=== PATIENT | female | born 1985 | race American Indian/Alaskan Native ===

== ENCOUNTER 2017-09-27 23:57 | Emergency (ER) | payer SELFPAY ==
[2017-09-28 00:57] VITALS: BP 128/84
== END 2017-09-28 01:00 | disposition left against medical advice (07) ==
LOC: ED 23:57
DX: R10.9 Unspecified abdominal pain (principal); Z53.21 Procedure and treatment not carried out due to patient leaving prior to being seen by health care provider

== ENCOUNTER 2017-11-18 15:49 | Emergency (ER) | payer OTHER ==
[2017-11-18] MEDS ORDERED: TORADOL IV ONE (16:47)
[2017-11-18] MEDS ORDERED: NACL 0.9% 1000 ML 1,000 ML IV ONE (16:47)
[2017-11-18] MEDS ORDERED: PEPCID IV ONE (16:47)
[2017-11-18] MEDS ORDERED: BENTYL IM ONE (16:47)
[2017-11-18] MEDS ORDERED: ZOFRAN IV ONE (16:47)
--- NOTE | 2017-11-18 16:47 | Emergency Department Report ---
Blank Doc - Documentation Documentation: Patient is a 32-year-old female who is presenting with abdominal pain is diffuse. Patient is a crampy pain is 8 out of 10 in severity. Patient said several days of nausea vomiting diarrhea as well. Patient states this only a small amount of yellowish stool she also is unable to keep anything down. Patient denies any fever. Patient states his pain is been present for approximately one day. Patient be moved 4 to a treatment ro to receive IV fluids Lasix and then ordered the patient will be reassessed. Om
[2017-11-18 17:24] LABS: Hematocrit 38.7 % (30.3-42.9); Hemoglobin 12.7 gm/dl (10.1-14.3); Mean Corpuscular HGB Conc 33 % (30-34); Mean Corpuscular Hemoglobin 31 pg (28-32); Mean Corpuscular Volume 95 fl (79-97); Platelet Count 261 K/mm3 (140-440); Red Blood Count 4.07 M/mm3 (3.65-5.03); Red Cell Distribution Width 13.7 % (13.2-15.2)
[2017-11-18 17:48] LABS: Alanine Aminotransferase 9 units/L (7-56); Albumin 4.4 g/dL (3.9-5); BUN/Creatinine Ratio 15; Blood Urea Nitrogen 9 mg/dL (7-17); Calcium 9.4 mg/dL (8.4-10.2); Hemolysis Index 4
[2017-11-18 18:22] LABS: Basophils % (Manual) 0 % (0.0-1.8); Eosinophils % (Manual) 0 % (0.0-4.3); Total Cells Counted 100
[2017-11-18 18:23] LABS: Anisocytosis 1+; Platelet Estimate Consistent w Auto; Poikilocytosis 1+
[2017-11-18] MEDS ORDERED: MORPHINE IV ONE (20:08)
--- NOTE | 2017-11-18 20:18 | Emergency Department Report ---
ED Abdominal Pain HPI - General Chief Complaint: Abdominal Pain Stated Complaint: ABDOMINAL PAIN Time Seen by Provider: 11/18/17 16:42 Source: patient Mode of arrival: Wheelchair Limitations: No Limitations - History of Present Illness Initial Comments: 32-year-old [place] female comes in complaining of abdominal pain across the abdomen with nausea and vomiting. Patient reports that she has complained of severe constipation. She reports that her stools have been yellow and orange. She did report that she took a laxative [id number]. She does report that she is having loose stool around but feels like there is pressure in her rectum area. Patient with a past medical history ovarian cysts. MD Complaint: abdominal pain Location: suprapubic Radiation: none Migration to: no migration Severity scale (0 -10): 10 Quality: cramping, aching Consistency: constant Improves With: nothing Worsens With: nothing Associated Symptoms: nausea, vomiting, diarrhea, constipation. denies: fever - Related Data LMP Date: 11/11/17 Previous Rx's Medication Instructions Recorded Last Taken Type Polyethylene Glycol 3350 [Miralax 17 gm PO QDAY #12 packet 11/18/17 Unknown Rx 3350] traMADol [Ultram 50 MG tab] 50 mg PO Q6HR PRN #20 tablet 11/18/17 Unknown Rx Allergies Allergy/AdvReac Type Severity Reaction Status Date / Time No Known Allergies Allergy Unverified 09/28/17 01:25 ED Review of Systems ROS: Stated complaint: ABDOMINAL PAIN Other details as noted in HPI Constitutional: denies: chills, fever Respiratory: denies: cough, shortness of breath, wheezing Cardiovascular: denies: chest pain, palpitations Gastrointestinal: abdominal pain, nausea, vomiting, diarrhea, constipation Genitourinary: denies: urgency, dysuria, discharge ED Past Medical Hx - Past Medical History Previous Medical History?: No - Surgical History Past Surgical History?: No - Social History Smoking Status: Never Smoker Substance Use Type: None - Medications Home Medications: Home Medications Medication Instructions Recorded Confirmed Last Taken Type Polyethylene Glycol 3350 [Miralax 17 gm PO QDAY #12 packet 11/18/17 Unknown Rx 3350] traMADol [Ultram 50 MG tab] 50 mg PO Q6HR PRN #20 tablet 11/18/17 Unknown Rx ED Physical Exam - General Limitations: No Limitations General appearance: alert, in no apparent distress - Head Head exam: Present: atraumatic, normocephalic - Eye Eye exam: Present: normal appearance - ENT ENT exam: Present: mucous membranes moist - Neck Neck exam: Present: normal inspection - Respiratory Respiratory exam: Present: normal lung sounds bilaterally. Absent: respiratory distress - Cardiovascular Cardiovascular Exam: Present: regular rate, normal rhythm. Absent: systolic murmur, diastolic murmur, rubs, gallop - GI/Abdominal GI/Abdominal exam: Present: soft, tenderness (left lower quadrant). Absent: distended, guarding - Extremities Exam Extremities exam: Present: normal inspection - Neurological Exam Neurological exam: Present: alert, oriented X3 - Psychiatric Psychiatric exam: Present: normal affect, normal mood - Skin Skin exam: Present: warm, dry, intact, normal color. Absent: rash ED Course Vital Signs 11/18/17 11/18/17 16:11 17:05 Temperature 98.5 F Pulse Rate 72 Respiratory 18 22 Rate Blood Pressure 116/67 O2 Sat by Pulse 100 Oximetry ED Medical Decision Making - Lab Data Result diagrams: 11/18/17 17:02 11/18/17 17:02 - Radiology Data Radiology results: report reviewed, image reviewed FINAL REPORT PROCEDURE: CT ABDOMEN PELVIS W CON TECHNIQUE: Computerized axial tomography of the abdomen and pelvis was performed after the IV injection of iodinated nonionic contrast. HISTORY: abdominal pain with history of ovarian cysts COMPARISON: No prior studies are available for comparison. FINDINGS: Lower Lung woodruff: No focal abnormality seen. Upper Abdomen: There is a intermediate to low-density nodule in the right lobe of the liver superior laterally measuring 8.2 millimeter image 27 series 2. A delayed image shows the nodule enhances diffusely and becomes isointense. The liver is otherwise unremarkable. The gallbladder showed no abnormality. Intrahepatic ducts are not distended. The adrenal glands, the pancreas and the spleen are unremarkable. Kidneys, Ureters and Urinary bladder: No abnormalities are seen. Retroperitoneum: Abdominal aorta appears normal. Nonspecific subcentimeter lymph nodes are seen in the retroperitoneum. No pathologically enlarged lymph nodes are identified. Bowel: No focal bowel loop abnormalities are seen. No evidence of bowel obstruction or ascites. There is no free intraperitoneal gas. Reproductive organs: There is a low-density nodule in the uterine myometrium anteriorly suggesting a uterine fibroid. No abnormal adnexal masses are identified. Other: No acute bone abnormalities are visualized. IMPRESSION: There is a vascular lesion in the right lobe of the liver. This enhances with contrast as described. Etiology is uncertain. A hepatic hemangioma could present this manner however other vascular lesions including malignancy can present this type of enhancement pattern as well. Consider follow-up dedicated dynamic contrast-enhanced CT scan of the liver or dynamic contrast-enhanced MRI of the liver for further characterization. Uterine fibroids suspected. No abnormal adnexal masses are seen. If further evaluation of the pelvis as clinically indicated pelvic ultrasound could be performed. No other abnormalities are seen. Transcribed By: DEVON Dictated By: TOMMY ZAPATA MD Electronically Authenticated By: TOMMY ZAPATA MD Signed Date/Time: 11/18/172127 DD/ 27 TD/TT: 11/18/172127 - Medical Decision Making Patient is been evaluated by this provider in fast track as well as Dr. Parra. CBC CMP ordered which are within normal limits. IV fluids ordered Bentyl ordered Toradol ordered Morphine ordered CT with contrast of the abdomen and pelvic Discussed patient that it is imperative that she follows up with a distinctive CT or possible MRI for evaluation of her abnormal liver concern for hemangioma versus malignancy. Also concerns for possible uterine fibroid. As well as constipation. Will discharge patient on Toradol and MiraLAX/GoLYTELY. We'll place referral for buggy ladle tender as well as a primary care. Critical care attestation.: If time is entered above; I have spent that time in minutes in the direct care of this critically ill patient, excluding procedure time. ED Disposition Clinical Impression: Abdominal pain Qualifiers: Abdominal location: left lower quadrant Qualified Code(s): R10.32 - Left lower quadrant pain Uterine fibroid Qualifiers: Uterine leiomyoma location: unspecified location Qualified Code(s): D25.9 - Leiomyoma of uterus, unspecified Constipation Qualifiers: Constipation type: unspecified constipation type Qualified Code(s): K59.00 - Constipation, unspecified Disposition: - TO HOME OR SELFCARE Is pt being admited?: No Does the pt Need Aspirin: No Condition: Stable Instructions: Abdominal Pain (ED) Additional Instructions: Please take medications as prescribed. It is imperative that she follow-up with the buggy ladle tender/gastrologist for a CT or MRI of the liver. Her CT scan came back abnormal for liver possible hemangioma versus malignancy. As well as she should follow-up with her [employer] provider as well as his a possible uterine fibroid that they noticed significant uterus. I will refer you to his primary care provider. Prescriptions: Polyethylene Glycol 3350 [Miralax 3350] 17 gm PO QDAY #12 packet traMADol [Ultram 50 MG tab] 50 mg PO Q6HR PRN #20 tablet PRN Reason: Pain Referrals: PRIMARY CARE, [Primary Care Provider] - 3-5 Days AIMEE CARMONA MD [Referring] - 3-5 Days FARZAD OLIVA MD [Referring] - 3-5 Days SHAREE MUÑIZ MD [Referring] - 3-5 Days LOULOU FONTANEZ MD [Referring] - 3-5 Days FELIPE LEE MD [Staff Physician] - 3-5 Days STEPHANIE CLINE MD [Staff Physician] - 3-5 Days MAURIZIO RAPP MD [Staff Physician] - 3-5 Days [facility] [Provider Group] - 3-5 Days Forms: Work/School Release Form(ED), Accompanied Note
[2017-11-18 20:33] LABS: HCG Qualitative,Urine Negative (Negative)
[2017-11-18 20:34] LABS: Bilirubin,Urine NEG (Negative); Blood,Urine NEG (Negative); Color,Urine Yellow (Yellow); Mucus,Urine 3+ /HPF; Urobilinogen,Urine < 2.0 mg/dL (<2.0)
--- NOTE | 2017-11-18 21:31 | Cat Scan Report ---
FINAL REPORT PROCEDURE: CT ABDOMEN PELVIS W CON TECHNIQUE: Computerized axial tomography of the abdomen and pelvis was performed after the IV injection of iodinated nonionic contrast. HISTORY: abdominal pain with history of ovarian cysts COMPARISON: No prior studies are available for comparison. FINDINGS: Lower Lung woodruff: No focal abnormality seen. Upper Abdomen: There is a intermediate to low-density nodule in the right lobe of the liver superior laterally measuring 8.2 millimeter image 27 series 2. A delayed image shows the nodule enhances diffusely and becomes isointense. The liver is otherwise unremarkable. The gallbladder showed no abnormality. Intrahepatic ducts are not distended. The adrenal glands, the pancreas and the spleen are unremarkable. Kidneys, Ureters and Urinary bladder: No abnormalities are seen. Retroperitoneum: Abdominal aorta appears normal. Nonspecific subcentimeter lymph nodes are seen in the retroperitoneum. No pathologically enlarged lymph nodes are identified. Bowel: No focal bowel loop abnormalities are seen. No evidence of bowel obstruction or ascites. There is no free intraperitoneal gas. Reproductive organs: There is a low-density nodule in the uterine myometrium anteriorly suggesting a uterine fibroid. No abnormal adnexal masses are identified. Other: No acute bone abnormalities are visualized. IMPRESSION: There is a vascular lesion in the right lobe of the liver. This enhances with contrast as described. Etiology is uncertain. A hepatic hemangioma could present this manner however other vascular lesions including malignancy can present this type of enhancement pattern as well. Consider follow-up dedicated dynamic contrast-enhanced CT scan of the liver or dynamic contrast-enhanced MRI of the liver for further characterization. Uterine fibroids suspected. No abnormal adnexal masses are seen. If further evaluation of the pelvis as clinically indicated pelvic ultrasound could be performed. No other abnormalities are seen.
[2017-11-18 23:01] VITALS: BP 94/68
== END 2017-11-19 | disposition home or self-care (01) ==
LOC: ED 15:49
DX: K59.00 Constipation, unspecified (principal); D25.9 Leiomyoma of uterus, unspecified
CPT/HCPCS: 36415; 74177; 80053; 81001; 81025; 82271; 85007; 85025; 96361; 96374; 96375; 99284; J1885; J2270; J2405; J7030; Q9967

== ENCOUNTER 2019-01-23 21:47 | Emergency (ER) | payer SELFPAY ==
--- NOTE | 2019-01-23 21:59 | Event Note ---
ED Screening Note Date of service: 01/23/19 Time: 21:54 ED Screening Note: 33 y/o female comes in for 3 months of intermittent body tingling and sharp pain in her legs and head. LMP 01/07/19 . Pain 01/16. Smoke weed. This initial assessment/diagnostic orders/clinical plan/treatment(s) is/are subject to change based on patients health status, clinical progression and re- assessment by fellow clinical providers in the ED. Further treatment and workup at subsequent clinical providers discretion. Patient/guardian urged not to elope from the ED as their condition may be serious if not clinically assessed and managed. Initial orders include:
[2019-01-23 22:10] VITALS: BP 110/72
[2019-01-23 22:45] LABS: Basophils % (Auto) 0.7 % (0.0-1.8); Eosinophils # (Auto) 0.1 K/mm3 (0.0-0.4); Eosinophils % (Auto) 1.3 % (0.0-4.3); Hematocrit 35.3 % (30.3-42.9); Hemoglobin 11.9 gm/dl (10.1-14.3); Lymphocytes # (Auto) 2.6 K/mm3 (1.2-5.4); Lymphocytes % (Auto) 42.1 % (13.4-35.0); Mean Corpuscular HGB Conc 34 % (30-34); Mean Corpuscular Volume 94 fl (79-97); Monocytes # (Auto) 0.4 K/mm3 (0.0-0.8); Monocytes % (Auto) 6.2 % (0.0-7.3); Platelet Count 240 K/mm3 (140-440); Red Blood Count 3.78 M/mm3 (3.65-5.03)
[2019-01-23 22:48] LABS: Bilirubin,Urine NEG (Negative); Blood,Urine NEG (Negative); Color,Urine Yellow (Yellow); Mucus,Urine 3+ /HPF; Protein,Urine <15 mg/dL mg/dL (Negative); Urobilinogen,Urine < 2.0 mg/dL (<2.0)
[2019-01-23 23:01] LABS: Albumin 4.4 g/dL (3.9-5); BUN/Creatinine Ratio 18; Blood Urea Nitrogen 11 mg/dL (7-17); Calcium 8.7 mg/dL (8.4-10.2); Hemolysis Index 4
[2019-01-23 23:05] LABS: Alanine Aminotransferase < 5 units/L (7-56)
[2019-01-24] MEDS ORDERED: TYLENOL PO ONE (00:26)
[2019-01-24] MEDS ORDERED: REGLAN PO ONE (00:26)
[2019-01-24] MEDS ORDERED: BENADRYL PO ONE (00:26)
[2019-01-24] MEDS ORDERED: DELTASONE PO ONE (00:26)
--- NOTE | 2019-01-24 00:42 | Emergency Department Report ---
ED General Adult HPI - General Chief complaint: Dizziness Stated complaint: BODY TINGLES, LIGHT HEADED Time Seen by Provider: 01/23/19 21:53 Source: patient Mode of arrival: Ambulatory Limitations: No Limitations - History of Present Illness Initial comments: 33 y/o female comes in frontal headache and sinus pressure for past 6 month , recurring for past 3 yrs pt states intermittent fever sinus pressure with rhonorrhea clear yellow , there is no numbness no swelling no n/v. pt endorses intermittent dizziness exacerbated by movement and position. pt has not taken OTC NSAIDs for pain Onset/Timin -: month(s) Location: head, face Radiation: non-radiation Severity scale (0 -10): 5 Quality: aching, sharp Consistency: constant Improves with: rest Worsens with: movement Associated Symptoms: cough, headaches Treatments Prior to Arrival: none - Related Data Previous Rx's Medication Instructions Recorded Last Taken Type Polyethylene Glycol 3350 [Miralax 17 gm PO QDAY #12 packet 11/18/17 Unknown Rx 3350] traMADol [Ultram 50 MG tab] 50 mg PO Q6HR PRN #20 tablet 11/18/17 Unknown Rx Amoxicillin/Potassium Clav 1 each PO BID 10 Days #20 tablet 01/24/19 Unknown Rx [Augmentin 875-125 Tablet] Ibuprofen [Motrin 800 MG tab] 800 mg PO Q8HR PRN #30 tablet 01/24/19 Unknown Rx Metoclopramide [Reglan] 10 mg PO Q6H PRN #30 tablet 01/24/19 Unknown Rx diphenhydrAMINE [Benadryl CAP] 25 mg PO Q6HR PRN #30 capsule 01/24/19 Unknown Rx predniSONE [Deltasone] 40 mg PO QDAY 5 Days #10 tab 01/24/19 Unknown Rx Allergies Allergy/AdvReac Type Severity Reaction Status Date / Time No Known Allergies Allergy Unverified 09/28/17 01:25 ED Review of Systems ROS: Stated complaint: BODY TINGLES, LIGHT HEADED Other details as noted in HPI Constitutional: denies: chills, fever Eyes: denies: eye pain, eye discharge, vision change ENT: congestion Respiratory: cough Cardiovascular: denies: chest pain, palpitations Endocrine: no symptoms reported Gastrointestinal: denies: abdominal pain, nausea, vomiting, diarrhea Genitourinary: denies: urgency, dysuria, discharge Musculoskeletal: denies: back pain, joint swelling, arthralgia Skin: denies: rash, lesions Neurological: denies: headache, weakness, numbness, paresthesias, confusion, abnormal gait, vertigo Psychiatric: denies: anxiety, depression Hematological/Lymphatic: denies: easy bleeding, easy bruising ED Past Medical Hx - Past Medical History Previous Medical History?: No - Surgical History Past Surgical History?: Yes Additional Surgical History: LEFT EYE - Social History Smoking Status: Current Every Day Smoker Substance Use Type: Marijuana - Medications Home Medications: Home Medications Medication Instructions Recorded Confirmed Last Taken Type Polyethylene Glycol 3350 [Miralax 17 gm PO QDAY #12 packet 11/18/17 Unknown Rx 3350] traMADol [Ultram 50 MG tab] 50 mg PO Q6HR PRN #20 tablet 11/18/17 Unknown Rx Amoxicillin/Potassium Clav 1 each PO BID 10 Days #20 tablet 01/24/19 Unknown Rx [Augmentin 875-125 Tablet] Ibuprofen [Motrin 800 MG tab] 800 mg PO Q8HR PRN #30 tablet 01/24/19 Unknown Rx Metoclopramide [Reglan] 10 mg PO Q6H PRN #30 tablet 01/24/19 Unknown Rx diphenhydrAMINE [Benadryl CAP] 25 mg PO Q6HR PRN #30 capsule 01/24/19 Unknown Rx predniSONE [Deltasone] 40 mg PO QDAY 5 Days #10 tab 01/24/19 Unknown Rx ED Physical Exam - General Limitations: No Limitations General appearance: alert, in no apparent distress - Head Head exam: Present: atraumatic, normocephalic - Eye Eye exam: Present: normal appearance, PERRL, EOMI Pupils: Present: normal accommodation - ENT ENT exam: Present: normal orophraynx, mucous membranes moist, TM's normal bilaterally, normal external ear exam, other (bilat maxillary and frontal sinus pain to palpation mild turbinate erythem clear post nasal drip, boggy erythema ) - Expanded ENT Exam Expanded Ear exam: Present: normal external inspection Mouth exam: Present: normal external inspection Teeth exam: Present: normal inspection Throat exam: Positive: tonsillar erythema, tonsillomegaly, other (uvula midline no stridor no swelling ). Negative: tonsillar exudate, R peritonsillar mass, L peritonsillar mass - Neck Neck exam: Present: normal inspection, full ROM. Absent: tenderness, meningismus, lymphadenopathy, thyromegaly - Respiratory Respiratory exam: Present: normal lung sounds bilaterally. Absent: respiratory distress, wheezes, stridor, chest wall tenderness - Cardiovascular Cardiovascular Exam: Present: regular rate, normal rhythm, normal heart sounds. Absent: systolic murmur, diastolic murmur, rubs, gallop - GI/Abdominal GI/Abdominal exam: Present: soft, normal bowel sounds. Absent: distended, tenderness, bruit, hernia - Rectal Rectal exam: Present: deferred - Extremities Exam Extremities exam: Present: normal inspection, full ROM, normal capillary refill. Absent: tenderness, pedal edema, joint swelling, calf tenderness - Back Exam Back exam: Present: normal inspection, full ROM. Absent: tenderness, CVA tenderness (R), CVA tenderness (L), muscle spasm, paraspinal tenderness, rash noted - Neurological Exam Neurological exam: Present: alert, oriented X3, CN II-XII intact, normal gait, reflexes normal. Absent: motor sensory deficit - Expanded Neurological Exam Expanded Neurological exam: Absent: ataxia Patient oriented to: Present: person, place, time Speech: Present: fluid speech Cranial nerves: EOM's Intact: Normal, Gag Reflex: Normal, Tongue Deviation: Normal, Nystagmus: Normal, Facial Sensation: Normal Cerebellar function: Finger to Nose: Normal, Heel to Sol: Normal, Romberg: Normal Upper motor neuron: Tonny Neglect: Normal, Pronator Drift: Normal, Babinski Sign: Normal, Sensory Extinction: Normal Sensory exam: Upper Extremity Light Touch: Normal, Upper Extremity Pin Prick: Normal, Upper Extremity Temperature: Normal, UE 2 Point Discrimination: Normal, Lower Extremity Light Touch: Normal, Lower Extremity Pin Prick: Normal, Lower Extremity Temperature: Normal, LE 2 Point Discrimination: Normal Motor strength exam: RUE: 5, LUE: 5, RLE: 5, LLE: 5 Best Eye Response ([place]): (4) open spontaneously Best Motor Response ([place]): (6) obeys commands Best Verbal Response ([place]): (5) oriented Roger Total: 15 - Psychiatric Psychiatric exam: Present: normal affect, normal mood - Skin Skin exam: Present: warm, dry, intact, normal color. Absent: rash ED Course Vital Signs 01/23/19 21:52 Temperature 98.8 F Pulse Rate 69 Respiratory 16 Rate Blood Pressure 110/72 O2 Sat by Pulse 100 Oximetry ED Medical Decision Making - Lab Data Result diagrams: 01/23/19 22:28 01/23/19 22:28 Lab Results 01/23/19 01/23/19 01/23/19 Range/Units 22:10 22:28 22:28 WBC 6.3 (4.5-11.0) K/mm3 RBC 3.78 (3.65-5.03) M/mm3 Hgb 11.9 (10.1-14.3) gm/dl Hct 35.3 (30.3-42.9) % MCV 94 (79-97) fl MCH 31 (28-32) pg MCHC 34 (30-34) % RDW 14.0 (13.2-15.2) % Plt Count 240 (140-440) K/mm3 Lymph % (Auto) 42.1 H (13.4-35.0) % [place] % (Auto) 6.2 (0.0-7.3) % Eos % (Auto) 1.3 (0.0-4.3) % Baso % (Auto) 0.7 (0.0-1.8) % Lymph # 2.6 (1.2-5.4) K/mm3 [place] # 0.4 (0.0-0.8) K/mm3 Eos # 0.1 (0.0-0.4) K/mm3 Baso # 0.0 (0.0-0.1) K/mm3 Seg Neutrophils % 49.7 (40.0-70.0) % Seg Neutrophils # 3.1 (1.8-7.7) K/mm3 Sodium 141 (137-145) mmol/L Potassium 3.8 (3.6-5.0) mmol/L Chloride 105.2 (98-107) mmol/L Carbon Dioxide 26 (22-30) mmol/L Anion Gap 14 mmol/L BUN 11 (7-17) mg/dL Creatinine 0.6 L (0.7-1.2) mg/dL Estimated GFR > 60 ml/min BUN/Creatinine Ratio 18 % Glucose 94 (65-100) mg/dL Calcium 8.7 (8.4-10.2) mg/dL Total Bilirubin 0.20 (0.1-1.2) mg/dL AST 13 (5-40) units/L ALT < 5 L (7-56) units/L Alkaline Phosphatase 46 (35-129) units/L Total Protein 7.1 (6.3-8.2) g/dL Albumin 4.4 (3.9-5) g/dL Albumin/Globulin Ratio 1.6 % HCG, Qual (Negative) Urine Color Yellow (Yellow) Urine Turbidity Clear (Clear) Urine pH 7.0 (5.0-7.0) Ur Specific [place] 1.025 (1.003-1.030) Urine Protein <15 mg/dl (Negative) mg/dL Urine Glucose (UA) Neg (Negative) mg/dL Urine Ketones Neg (Negative) mg/dL Urine Blood Neg (Negative) Urine Nitrite Neg (Negative) Urine Bilirubin Neg (Negative) Urine Urobilinogen < 2.0 (<2.0) mg/dL Ur Leukocyte Esterase Neg (Negative) Urine WBC (Auto) 1.0 (0.0-6.0) /HPF Urine RBC (Auto) 4.0 (0.0-6.0) /HPF U Epithel Cells (Auto) 5.0 (0-13.0) /HPF Urine Mucus 3+ /HPF / Range/Units 22:28 WBC (4.5-11.0) K/mm3 RBC (3.65-5.03) M/mm3 Hgb (10.1-14.3) gm/dl Hct (30.3-42.9) % MCV (79-97) fl MCH (28-32) pg MCHC (30-34) % RDW (13.2-15.2) % Plt Count (140-440) K/mm3 Lymph % (Auto) (13.4-35.0) % [place] % (Auto) (0.0-7.3) % Eos % (Auto) (0.0-4.3) % Baso % (Auto) (0.0-1.8) % Lymph # (1.2-5.4) K/mm3 [place] # (0.0-0.8) K/mm3 Eos # (0.0-0.4) K/mm3 Baso # (0.0-0.1) K/mm3 Seg Neutrophils % (40.0-70.0) % Seg Neutrophils # (1.8-7.7) K/mm3 Sodium (137-145) mmol/L Potassium (3.6-5.0) mmol/L Chloride (98-107) mmol/L Carbon Dioxide (22-30) mmol/L Anion Gap mmol/L BUN (7-17) mg/dL Creatinine (0.7-1.2) mg/dL Estimated GFR ml/min BUN/Creatinine Ratio % Glucose (65-100) mg/dL Calcium (8.4-10.2) mg/dL Total Bilirubin (0.1-1.2) mg/dL AST (5-40) units/L ALT (7-56) units/L Alkaline Phosphatase (35-129) units/L Total Protein (6.3-8.2) g/dL Albumin (3.9-5) g/dL Albumin/Globulin Ratio % HCG, Qual Negative (Negative) Urine Color (Yellow) Urine Turbidity (Clear) Urine pH (5.0-7.0) Ur Specific [place] (1.003-1.030) Urine Protein (Negative) mg/dL Urine Glucose (UA) (Negative) mg/dL Urine Ketones (Negative) mg/dL Urine Blood (Negative) Urine Nitrite (Negative) Urine Bilirubin (Negative) Urine Urobilinogen (<2.0) mg/dL Ur Leukocyte Esterase (Negative) Urine WBC (Auto) (0.0-6.0) /HPF Urine RBC (Auto) (0.0-6.0) /HPF U Epithel Cells (Auto) (0-13.0) /HPF Urine Mucus /HPF - Medical Decision Making this is a sinus headache with sinusitis relieved by medications given in ed plan: prednisones, benadryl, reglan, Augmentin follow up with pcp in 2-3 days p verbalized agreement and understanding of discharge plan. Critical care attestation.: If time is entered above; I have spent that time in minutes in the direct care of this critically ill patient, excluding procedure time. ED Disposition Clinical Impression: Sinus headache Sinusitis Qualifiers: Sinusitis location: maxillary Chronicity: acute Recurrence: recurrent Qualified Code(s): J01.01 - Acute recurrent maxillary sinusitis Disposition: TO HOME OR SELFCARE Is pt being admited?: No Does the pt Need Aspirin: No Condition: Stable Instructions: Sinusitis (ED), Acute Headache (ED) Prescriptions: Amoxicillin/Potassium Clav [Augmentin 875-125 Tablet] 1 each PO BID 10 Days #20 tablet diphenhydrAMINE [Benadryl CAP] 25 mg PO Q6HR PRN #30 capsule PRN Reason: Headache predniSONE [Deltasone] 40 mg PO QDAY 5 Days #10 tab Ibuprofen [Motrin 800 MG tab] 800 mg PO Q8HR PRN #30 tablet PRN Reason: pain Metoclopramide [Reglan] 10 mg PO Q6H PRN #30 tablet PRN Reason: Headache Referrals: SAM SUE MD [Primary Care Provider] - 3-5 Days JOHAN IGNACIO MD [Referring] - 3-5 Days Forms: Work/School Release Form(ED) Time of Disposition: 00:52
== END 2019-01-24 01:25 | disposition home or self-care (01) ==
LOC: ED 21:47
DX: J01.00 Acute maxillary sinusitis, unspecified (principal); J01.10 Acute frontal sinusitis, unspecified; F17.200 Nicotine dependence, unspecified, uncomplicated; F12.10 Cannabis abuse, uncomplicated; Z79.1 Long term (current) use of non-steroidal anti-inflammatories (NSAID); Z79.899 Other long term (current) drug therapy
CPT/HCPCS: 36415; 80053; 81001; 84703; 85025; 99283; J7512

== ENCOUNTER 2021-03-23 14:50 | Emergency (ER) | payer OTHER ==
[2021-03-23 15:17] VITALS: BP 106/77
--- NOTE | 2021-03-23 16:15 | Emergency Department Report ---
ED General Adult HPI - General Chief complaint: Extremity Problem,Nontraumatic Stated complaint: INCREASED HEART RATE/POSS BLOOD CLOT Time Seen by Provider: 03/23/21 15:39 Source: patient Mode of arrival: Ambulatory Limitations: No Limitations - History of Present Illness Initial comments: 35-year-old -[place] female patient presents with complaints of bilateral leg pains and intermittent racing heart x1.5 weeks. Patient states her symptoms appear to worsen at night while laying down. She also reports feelings of heat rushing to her legs and her feet. She states history of a TIA in 2019 and also reports that her PCP is currently working her up for autoimmune illness. She denies any cough, recent long travel/surgeries, hemoptysis, swe lling in legs, history of DVT/PE/cancer, or hormone use. No chest pain per patient. She states when her heart races she does feel short of breath, but denies any current shortness of breath. - Related Data Previous Rx's Medication Instructions Recorded Last Taken Type polyethylene glycoL 3350 [Miralax 17 gm PO QDAY #12 packet 11/18/17 Unknown Rx 3350] traMADoL [Ultram 50 MG tab] 50 mg PO Q6HR PRN #20 tablet 11/18/17 Unknown Rx Amoxicillin/Potassium Clav 1 each PO BID 10 Days #20 tablet 01/24/19 Unknown Rx [Augmentin 875-125 Tablet] Ibuprofen [Motrin 800 MG tab] 800 mg PO Q8HR PRN #30 tablet 01/24/19 Unknown Rx Metoclopramide [Reglan] 10 mg PO Q6H PRN #30 tablet 01/24/19 Unknown Rx diphenhydrAMINE [Benadryl CAP] 25 mg PO Q6HR PRN #30 capsule 01/24/19 Unknown Rx predniSONE [Deltasone] 40 mg PO QDAY 5 Days #10 tab 01/24/19 Unknown Rx Allergies Allergy/AdvReac Type Severity Reaction Status Date / Time No Known Allergies Allergy Unverified 09/28/17 01:25 ED Review of Systems ROS: Stated complaint: INCREASED HEART RATE/POSS BLOOD CLOT Other details as noted in HPI Constitutional: denies: chills, fever, malaise, weakness Respiratory: denies: cough Cardiovascular: palpitations. denies: chest pain, edema, syncope Gastrointestinal: denies: abdominal pain, nausea Musculoskeletal: denies: back pain, joint swelling, arthralgia Skin: denies: lesions, change in color Neurological: denies: numbness, paresthesias Hematological/Lymphatic: denies: easy bleeding, easy bruising, swollen glands ED Past Medical Hx - Past Medical History Previous Medical History?: No - Surgical History Past Surgical History?: No Additional Surgical History: LEFT EYE - Social History Smoking Status: Never Smoker Substance Use Type: None - Medications Home Medications: Home Medications Medication Instructions Recorded Confirmed Last Taken Type polyethylene glycoL 3350 [Miralax 17 gm PO QDAY #12 packet 11/18/17 Unknown Rx 3350] traMADoL [Ultram 50 MG tab] 50 mg PO Q6HR PRN #20 tablet 11/18/17 Unknown Rx Amoxicillin/Potassium Clav 1 each PO BID 10 Days #20 tablet 01/24/19 Unknown Rx [Augmentin 875-125 Tablet] Ibuprofen [Motrin 800 MG tab] 800 mg PO Q8HR PRN #30 tablet 01/24/19 Unknown Rx Metoclopramide [Reglan] 10 mg PO Q6H PRN #30 tablet 01/24/19 Unknown Rx diphenhydrAMINE [Benadryl CAP] 25 mg PO Q6HR PRN #30 capsule 01/24/19 Unknown Rx predniSONE [Deltasone] 40 mg PO QDAY 5 Days #10 tab 01/24/19 Unknown Rx ED Physical Exam - General Limitations: No Limitations General appearance: alert, in no apparent distress - Head Head exam: Present: atraumatic, normocephalic - Eye Eye exam: Present: normal appearance. Absent: scleral icterus - Respiratory Respiratory exam: Present: normal lung sounds bilaterally. Absent: respiratory distress - Cardiovascular Cardiovascular Exam: Present: regular rate, normal rhythm - Extremities Exam Extremities exam: Absent: calf tenderness (No swelling noted to legs bilaterally; pedal pulses are normal bilaterally) - Back Exam Back exam: Present: full ROM. Absent: paraspinal tenderness, vertebral tender ness - Neurological Exam Neurological exam: Present: alert, oriented X3, normal gait - Psychiatric Psychiatric exam: Present: normal affect, normal mood - Skin Skin exam: Present: warm, dry, intact, normal color. Absent: rash, cyanosis, diaphoretic, erythema, pallor, ecchymosis ED Course Vital Signs 03/23/21 15:12 Temperature 98 F Pulse Rate 74 Respiratory 16 Rate Blood Pressure 106/77 [Left] O2 Sat by Pulse 99 Oximetry ED Medical Decision Making - Lab Data Result diagrams: 03/23/21 16:15 03/23/21 16:15 Lab Results 03/23/21 03/23/21 03/23/21 Range/Units 16:15 16:15 16:15 WBC 5.3 (4.5-11.0) K/mm3 RBC 4.11 (3.65-5.03) M/mm3 Hgb 12.8 (10.1-14.3) gm/dl Hct 38.7 (30.3-42.9) % MCV 94 (79-97) fl MCH 31 (28-32) pg MCHC 33 (30-34) % RDW 14.0 (13.2-15.2) % Plt Count 232 (140-440) K/mm3 Lymph % (Auto) 34.7 (13.4-35.0) % [place] % (Auto) 5.9 (0.0-7.3) % Eos % (Auto) 0.7 (0.0-4.3) % Baso % (Auto) 0.6 (0.0-1.8) % Lymph # (Auto) 1.8 (1.2-5.4) K/mm3 [place] # (Auto) 0.3 (0.0-0.8) K/mm3 Eos # (Auto) 0.0 (0.0-0.4) K/mm3 Baso # (Auto) 0.0 (0.0-0.1) K/mm3 Seg Neutrophils % 58.1 (40.0-70.0) % Seg Neutrophils # 3.1 (1.8-7.7) K/mm3 D-Dimer 138.28 (0-234) ng/mlDDU Sodium 142 (137-145) mmol/L Potassium 3.9 (3.6-5.0) mmol/L Chloride 106.0 (98-107) mmol/L Carbon Dioxide 24 (22-30) mmol/L Anion Gap 16 mmol/L BUN 9 (7-17) mg/dL Creatinine 0.7 (0.6-1.2) mg/dL Estimated GFR > 60 ml/min BUN/Creatinine Ratio 13 % Glucose 85 (65-100) mg/dL Calcium 9.3 (8.4-10.2) mg/dL Magnesium 1.70 (1.7-2.3) mg/dL Total Bilirubin 0.60 (0.1-1.2) mg/dL AST 10 (5-40) units/L ALT < 5 L (7-56) units/L Alkaline Phosphatase 42 (35-129) units/L Troponin T < 0.010 (0.00-0.029) ng/mL Total Protein 7.7 (6.3-8.2) g/dL Albumin 4.5 (3.9-5) g/dL Albumin/Globulin Ratio 1.4 % TSH (0.270-4.200) mlU/mL HCG, Qual (Negative) 03/23/21 03/23/21 Range/Units 16:15 16:15 WBC (4.5-11.0) K/mm3 RBC (3.65-5.03) M/mm3 Hgb (10.1-14.3) gm/dl Hct (30.3-42.9) % MCV (79-97) fl MCH (28-32) pg MCHC (30-34) % RDW (13.2-15.2) % Plt Count (140-440) K/mm3 Lymph % (Auto) (13.4-35.0) % [place] % (Auto) (0.0-7.3) % Eos % (Auto) (0.0-4.3) % Baso % (Auto) (0.0-1.8) % Lymph # (Auto) (1.2-5.4) K/mm3 [place] # (Auto) (0.0-0.8) K/mm3 Eos # (Auto) (0.0-0.4) K/mm3 Baso # (Auto) (0.0-0.1) K/mm3 Seg Neutrophils % (40.0-70.0) % Seg Neutrophils # (1.8-7.7) K/mm3 D-Dimer (0-234) ng/mlDDU Sodium (137-145) mmol/L Potassium (3.6-5.0) mmol/L Chloride (98-107) mmol/L Carbon Dioxide (22-30) mmol/L Anion Gap mmol/L BUN (7-17) mg/dL Creatinine (0.6-1.2) mg/dL Estimated GFR ml/min BUN/Creatinine Ratio % Glucose (65-100) mg/dL Calcium (8.4-10.2) mg/dL Magnesium (1.7-2.3) mg/dL Total Bilirubin (0.1-1.2) mg/dL AST (5-40) units/L ALT (7-56) units/L Alkaline Phosphatase (35-129) units/L Troponin T (0.00-0.029) ng/mL Total Protein (6.3-8.2) g/dL Albumin (3.9-5) g/dL Albumin/Globulin Ratio % TSH 1.760 (0.270-4.200) mlU/mL HCG, Qual Negative (Negative) - EKG Data EKG shows normal: sinus rhythm Rate: normal - Radiology Data Radiology results: report reviewed Fluoro Time In Minutes: CHEST PA AND LATERAL VIEWS INDICATION: palpitations. COMPARISON: None. FINDINGS: Support devices: None. Heart: Within normal limits. Lungs/Pleura: No acute pulmonary or pleural findings. IMPRESSION: 1. No acute findings. - Medical Decision Making 35-year-old -[place] female patient presents with complaints of bilateral leg pains and intermittent racing heart x1.5 weeks. Patient states her symptoms appear to worsen at night while laying down. She also reports feelings of heat rushing to her legs and her feet. She states history of a TIA in 2019 and also reports that her PCP is currently working her up for autoimmune illness. She denies any cough, recent long travel/surgeries, hemoptysis, swelling in legs, history of DVT/PE/cancer, or hormone use. No chest pain per patient. She states when her heart races she does feel short of breath, but denies any current shortness of breath. No significant abnormalities noted on labs. Chest x-ray is normal. Dimer is negative. Recommend patient follows up with her primary care provider for furt her evaluation in 3 to 5 days. Discussed in detail signs and symptoms that should prompt immediate return to the ED with patient verbalized understanding. She is well-appearing, her vitals are normal, she is stable for discharge home. Critical care attestation.: If time is entered above; I have spent that time in minutes in the direct care of this critically ill patient, excluding procedure time. ED Disposition Clinical Impression: Bilateral leg paresthesia, Racing heart beat Disposition: HOME / SELF CARE / HOMELESS Is pt being admited?: No Condition: Stable Instructions: Paresthesia, Palpitations Referrals: PRIMARY CARE,MD [Referring] - 3-5 Days
[2021-03-23 16:41] LABS: Basophils % (Auto) 0.6 % (0.0-1.8); Eosinophils % (Auto) 0.7 % (0.0-4.3); Hematocrit 38.7 % (30.3-42.9); Hemoglobin 12.8 gm/dl (10.1-14.3); Lymphocytes # (Auto) 1.8 K/mm3 (1.2-5.4); Lymphocytes % (Auto) 34.7 % (13.4-35.0); Mean Corpuscular HGB Conc 33 % (30-34); Mean Corpuscular Volume 94 fl (79-97); Monocytes # (Auto) 0.3 K/mm3 (0.0-0.8); Monocytes % (Auto) 5.9 % (0.0-7.3); Platelet Count 232 K/mm3 (140-440); Red Blood Count 4.11 M/mm3 (3.65-5.03)
[2021-03-23 17:07] LABS: Alanine Aminotransferase < 5 units/L (7-56); Albumin 4.5 g/dL (3.9-5); BUN/Creatinine Ratio 13; Blood Urea Nitrogen 9 mg/dL (7-17); Calcium 9.3 mg/dL (8.4-10.2); Hemolysis Index 5
--- NOTE | 2021-03-23 17:37 | XRay Report ---
CHEST PA AND LATERAL VIEWS INDICATION: palpitations. COMPARISON: None. FINDINGS: Support devices: None. Heart: Within normal limits. Lungs/Pleura: No acute pulmonary or pleural findings. IMPRESSION: 1. No acute findings. Signer Name: Shawn Jara MD Signed: 03/23/2021 5:32 PM Workstation Name: [id number]
--- NOTE | 2021-03-29 09:51 | Electrocardiograph Report ---
[facility] Test Date: 2021-03-23 Test Time: 16:46:28 Pat Name: LINDSEY MATIAS Department: Room: Gender: F Garage Attendant: ELEUTERIO : 1985 Requested By: BRENDA ARCOS Order Number: [id number] Reading MD: Gifty Suggs Measurements Intervals [place] Rate: 60 P: 70 MN: 163 QRS: 70 QRSD: 127 T: 47 QT: 414 QTc: 414 Interpretive Statements Sinus rhythm Incomplete right bundle branch block Anterolateral Q wave, probably normal for age No previous ECG available for comparison Electronically Signed On 03-29-2021 9:51:00 EDT by Gifty Suggs
== END 2021-03-23 18:39 | disposition home or self-care (01) ==
LOC: ED 14:50
DX: R20.2 Paresthesia of skin (principal); R00.0 Tachycardia, unspecified
CPT/HCPCS: 36415; 71046; 80053; 83735; 84443; 84484; 84703; 85025; 85379; 93005; 99283